=== PATIENT | male | born 1990 | race Caucasian/White ===

== ENCOUNTER 2018-09-10 14:44 | Outpatient (CLI) | payer OTHER | END 2018-09-10 15:16 | disposition home or self-care (01) | LOC: SLEEP 14:44 | PROVIDERS: ATTEND Nurse Practitioner Family | DX: G47.50 Parasomnia, unspecified (principal) ==

== ENCOUNTER → 2019-03-05 | Outpatient (CLI) | payer OTHER ==
--- NOTE | 2019-03-05 08:46 | Diagnostic Imaging Report ---
INDICATION: Nasal mass for 4 months. Bump on right side of nose. FINDINGS: There is a well-circumscribed soft tissue mass at the region of the nasolacrimal duct on the right. There is widening of the nasolacrimal canal with bony remodeling. The soft tissue mass is smooth and homogeneous measuring 2.2 cm in diameter. This does not appear to involve the infraorbital canal. This is causing mild lateral displacement of the right globe. There is minimal mucosal thickening of the anterior ethmoid air cells on the left. Paranasal sinuses are otherwise clear. IMPRESSION: Soft tissue mass measuring approximately 2.2 cm along the nasolacrimal drainage apparatus. These findings are nonspecific. There is remodeling of the lacrimal duct. Differential would include squamous cell, transitional cell, adenocarcinoma as well as metastatic disease. Dictated by: Dictated on workstation # [id number]
== END ==
LOC: RAD 07:34
PROVIDERS: ATTEND Otolaryngology Otolaryngology/Facial Plastic Surgery
DX: J34.89 Other specified disorders of nose and nasal sinuses (principal)
CPT/HCPCS: 70487

== ENCOUNTER → 2019-07-12 | Outpatient (CLI) | payer OTHER | LOC: CARD 13:51 | PROVIDERS: ATTEND Physician Assistant | DX: G47.33 Obstructive sleep apnea (adult) (pediatric) (principal); G47.50 Parasomnia, unspecified; I10 Essential (primary) hypertension | CPT/HCPCS: 93306 ==

== ENCOUNTER → 2019-07-23 | Outpatient (CLI) | payer OTHER | LOC: LAB 14:40 | PROVIDERS: ATTEND Internal Medicine Cardiovascular Disease | DX: G47.33 Obstructive sleep apnea (adult) (pediatric) (principal) | CPT/HCPCS: 36415; 86618; 86666; 86668; 86757 ==